=== PATIENT | male | born 1985 | race Caucasian/White ===

== ENCOUNTER → 2018-01-05 | Outpatient (CLI) | payer OTHER | LOC: ULTRA 06:32 | DX: R74.8 Abnormal levels of other serum enzymes (principal) ==

== ENCOUNTER → 2018-01-14 | Outpatient (CLI) | payer OTHER | LOC: CAT 06:34 | DX: N28.1 Cyst of kidney, acquired (principal); K76.89 Other specified diseases of liver; D18.00 Hemangioma unspecified site ==

== ENCOUNTER → 2018-11-17 | Outpatient (CLI) | payer OTHER | LOC: ULTRA 07:48 | DX: D18.03 Hemangioma of intra-abdominal structures (principal) ==

== ENCOUNTER → 2021-06-27 | Outpatient (CLI) | payer OTHER | LOC: CAT 08:21 | PROVIDERS: ATTEND Family Medicine | DX: Z13.6 Encounter for screening for cardiovascular disorders (principal) ==

== ENCOUNTER → 2021-06-27 | Outpatient (CLI) | payer OTHER | END | disposition home or self-care (01) | LOC: ULTRA 08:09 | PROVIDERS: ATTEND Family Medicine | DX: R79.89 Other specified abnormal findings of blood chemistry (principal); K76.0 Fatty (change of) liver, not elsewhere classified ==